=== PATIENT | female | born 2000 | race Caucasian/White ===

== ENCOUNTER 2020-09-20 14:00 | Outpatient (RCR) | payer OTHER, SELFPAY | END 2020-09-30 23:55 | disposition home or self-care (01) | LOC: HO.PAOS 14:00 | PROVIDERS: Visit Provider Counselor Mental Health | DX: F43.10 Post-traumatic stress disorder, unspecified (principal); F33.2 Major depressive disorder, recurrent severe without psychotic features | CPT/HCPCS: 90834 ==

== ENCOUNTER 2020-12-16 10:00 | Outpatient (RCR) | payer OTHER, SELFPAY ==
[2020-11-25 12:19] VITALS: BMI 21.6
--- NOTE | 2020-11-25 12:35 | PC.NURSE ---
Patient is a 20 year old who identifies as non-binary and goes by the name of Loida. They were referred by their therapist d/t increased depression with passive SI, increased anxiety, agoraphobia, and increased sxs of PTSD. Patient reports recent stay at [facility] d/t symptoms and reports stressors including financial and work related. Patient reports one of their jobs is triggering and stated they have not been back since the end of September. Patient given the number to [facility] and has information regarding SNAP benefits. Patient presents with depressed mood and affect. Denied SI at present. Denied HI, AH, Or VH. Asked who they could call or talk to if feeling unsafe and patient mentioned their partner, texting crisis, call family or friends. Patient gave verbal permission to email them a copy of their safety plan. Patient lives with their partner. They do not have a PCP at this time as they were previously seeing a pediatric PCP. Patient would like staff assistance in finding a new PCP. Reports taking medications as prescribed however made adjustments on how they are taking Buspar as they forget to take the noon dose. Patient is taking the same daily dose and stated their prescriber is aware.
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
--- NOTE | 2020-11-30 18:25 | P.PNPSP_ITS ---
Subjective Subjective Date of Service: 11/30/20 Reason For Visit: depression Interim History: Loida reports recent fatigue panel of labs done with OP team that were negative (lyme, TFT, bmp, monique, iGG, cbcd, esr. Reports fatigue persists along with anxiety. Denies med SE. but it feels like the meds don't work . Reports sleep is intact, Trazodone helpful. At times it is difficult to remain asleep and at times they experience JUAN. Appetite is decreased, currently eating 1 meal daily. Pt denies SI/self-harm thoughts, intent or plan, states they find that connection is very helpful-connecting with group in [facility], connecting with partner, not being isolative is most helpful and these inte rventions manage sx when they arise. Denies substance use, medical symptoms or complaints (reports hx anemia-contributing factor to fatigue), no lability, no VH/AH. Medication Compliance: Yes Side effects from medications: No Attending Groups: Yes Review of Systems Constitutional: Reports fatigue Psychiatric: Reports anxiety and Reports depression Endocrine: Reports fatigue Mental Status Exam Mental Status Exam Patient Appearance: Appropriate Patient Orientation: Person, Place, Time and Situation Level of Consciousness: Awake and Alert Patient Behavior: Appropriate and Talkative Mood Description: Calm Affect Description: Calm Patient Cognition Impaired: No Ability to Follow Directions: Good Speech Pattern: Spontaneous Speech Memory Description: Intact Hallucinations: None Delusions: Not Present Thought Process: Intact Thought Content: positive for Intact Depressive Symptoms: Increased Anxiety and Changes in Appetite Judgement: Good Diagnostics Vital Signs (24Hr): Body Mass Index 21.6 Labs Labs: Fatigue panel just completed with OP team which is normal. Assessment & Plan Assessment & Plan (1) Bipolar II disorder with atypical features: Status: Acute Code(s): F31.81 - Bipolar II disorder Assessment and Plan: -Continue current plan of care. Pt has just completed diagnostics with OP team and wants to take the next step with medicine titration with their plan of care. Patient educated on: therapeutic strategies Informed Consent: understands and further education needed Reason for contiued partial hosp. stay Substantial Risk for: harm to self and rapid decompensation Certification I certify that partial hospital treatment is medically necessary due to the symptoms and problems resulting from the patient's mental illness and the failure to treat the patient at the partial hospital level of care would likely result in the patient requiring inpatient psychiatric care which could not be prevented at a less intensive level of care. Greater than 50% of the session was spent on counseling and/or coordination of care Discharge Plan Discharge Attending provider: Preston Garcia Medications: No Action trazodone 100 mg Tablet 200 mg PO BEDTIME RF: 0 lamotrigine 150 mg Tablet 150 mg PO BEDTIME RF: 0 buspirone 30 mg Tablet 30 mg PO BEDTIME RF: 0 buspirone [BuSpar] 30 mg Tablet 15 mg PO DAILY RF: 0 buspirone 7.5 mg Tablet 7.5 mg PO DAILY RF: 0 guanfacine 2 mg Tablet Extended Release 24 Hr 2 mg PO QPM RF: 0 Telehealth Telehealth Location of provider rendering services: practice address Location of patient: address on file Patient Identification confirmed using: Name, : Yes Telehealth method: video Patient verbally consented to treatment: Yes Patient verbally consented to billing insurance company: Yes Patient informed of any privacy concerns related to visit: Yes Time spent with patient (mins): 20
--- NOTE | 2020-12-07 14:08 | HO.PHPPROGNO ---
Subjective Subjective Date of Service: 12/07/20 Reason For Visit: depression Interim History: Loida reports improve in symptoms of depression. She reports feeling a little bit more energy and willingness to do things that she enjoys. She reports no increase of anxiety during the day with addition of Bupropion. She is taking SD 37.5mg po daily. She denies SI/HI. She is future oriented and reports program has been very beneficial. We discussed increasing Bupropion to 75mg po daily. Review of Systems Constitutional: Reports fatigue Psychiatric: Reports anxiety and Reports depression Endocrine: Reports fatigue Mental Status Exam Mental Status Exam Narrative: Appearance: casually groomed, good hygiene, in NAD Behavior: calm, cooperative Psychomotor: no agitation or retardation noted Speech: clear, normal rate/rhythm/volume, spontaneous TP: linear TC: no signs of psychosis, feeling anxious/depressed Mood: better Affect: brighter at times, non labile SI: denies, no plan HI: none VH/AH: none Delusions: none Insight/judgment: fair x 2. Memory/cog: alert, oriented x 3. Grossly intact to conversational testing. Patient Appearance: Appropriate Patient Orientation: Place, Time and Situation Level of Consciousness: Awake and Alert Patient Behavior: Talkative Mood Description: Calm Affect Description: Calm Patient Cognition Impaired: No Ability to Follow Directions: Good Speech Pattern: Spontaneous Speech Memory Description: Intact Diagnostics Vital Signs (24Hr): Body Mass Index 21.6 Assessment & Plan Assessment & Plan (1) Bipolar II disorder with atypical features: Status: Acute Code(s): F31.81 - Bipolar II disorder Assessment and Plan: -Continue current plan of care. Increase Bupropion to 75mg po daily. Continue all other medications as prescribed. Certification I certify that partial hospital treatment is medically necessary due to the symptoms and problems resulting from the patient's mental illness and the failure to treat the patient at the partial hospital level of care would likely result in the patient requiring inpatient psychiatric care which could not be prevented at a less intensive level of care. Greater than 50% of the session was spent on counseling and/or coordination of care Discharge Plan Discharge Attending provider: Preston Garcia Medications: New bupropion HCl 75 mg tablet 75 mg PO DAILY 15 Days Qty: 15 RF: 0 No Action trazodone 100 mg Tablet 200 mg PO BEDTIME RF: 0 lamotrigine 150 mg Tablet 150 mg PO BEDTIME RF: 0 buspirone 30 mg Tablet 30 mg PO BEDTIME RF: 0 buspirone [BuSpar] 30 mg Tablet 15 mg PO DAILY RF: 0 buspirone 7.5 mg Tablet 7.5 mg PO DAILY RF: 0 guanfacine 2 mg Tablet Extended Release 24 Hr 2 mg PO QPM RF: 0 Telehealth Telehealth Location of provider rendering services: practice address Location of patient: address on file Patient Identification confirmed using: Name, : Yes Telehealth method: video Patient verbally consented to treatment: Yes Patient verbally consented to billing insurance company: Yes Patient informed of any privacy concerns related to visit: Yes Time spent with patient (mins): 20
--- NOTE | 2020-12-08 15:16 | PC.NURSE ---
After playing phone tag with Dr. Jen Hnaks, who runs the DBT program at [facility], I called central registration and put in a referral for pt to join the DBT group. This was in response to a message from Dr. Hanks instructing me to do so, and stating she will take pt into her DBT art-based skills group. I was told that [facility] would contact pt. I called and informed pt of this, and the reported they were pleased and looking forward to joining the group.
--- NOTE | 2020-12-15 16:32 | HO.PHPPROGNO ---
Subjective Subjective Date of Service: 12/15/20 Reason For Visit: depression Interim History: Pt reports Wellbutrin to be helpful with more energy to tackle required tasks. Acknowledges situational anxiety with anticipated return to work and recently needing to distance from a few people in her life. Reports sleep is appropriate, 7-8 hours per night, appetite is poor however pt is mindful and eating regularly. Denies SE, Denies SI plan or intent, reports she is safe, doing some skin picking but less symptomatic overall. Medication Compliance: Yes Side effects from medications: No Attending Groups: Yes Review of Systems Review of Systems Yes all other systems are reviewed and are negative (denies current symptoms) Mental Status Exam Mental Status Exam Patient Appearance: Appropriate Patient Orientation: Person, Place, Time and Situation Level of Consciousness: Awake and Alert Patient Behavior: Appropriate Mood Description: Anxious Affect Description: Flat Patient Cognition Impaired: No Ability to Follow Directions: Good Speech Pattern: Spontaneous Speech Memory Description: Intact Hallucinations: None Delusions: Not Present Thought Process: Intact Thought Content: positive for Intact and positive for Suicidal Ideation (denies SI plan or intent) Depressive Symptoms: Increased Anxiety and Changes in Appetite Judgement: Good Diagnostics Vital Signs (24Hr): Body Mass Index 21.6 Assessment & Plan Assessment & Plan (1) Bipolar II disorder with atypical features: Status: Acute Code(s): F31.81 - Bipolar II disorder Assessment and Plan: Continue current plan of care. Certification I certify that partial hospital treatment is medically necessary due to the symptoms and problems resulting from the patient's mental illness and the failure to treat the patient at the partial hospital level of care would likely result in the patient requiring inpatient psychiatric care which could not be prevented at a less intensive level of care. Greater than 50% of the session was spent on counseling and/or coordination of care Discharge Plan Discharge Attending provider: Preston Garcia Medications: Continued bupropion HCl 75 mg tablet 75 mg PO DAILY 15 Days Qty: 15 RF: 1 No Action trazodone 100 mg Tablet 200 mg PO BEDTIME RF: 0 lamotrigine 150 mg Tablet 150 mg PO BEDTIME RF: 0 buspirone 30 mg Tablet 30 mg PO BEDTIME RF: 0 buspirone [BuSpar] 30 mg Tablet 15 mg PO DAILY RF: 0 buspirone 7.5 mg Tablet 7.5 mg PO DAILY RF: 0 guanfacine 2 mg Tablet Extended Release 24 Hr 2 mg PO QPM RF: 0 Telehealth Telehealth Location of provider rendering services: practice address Location of patient: address on file Patient Identification confirmed using: Name, : Yes Telehealth method: video Patient verbally consented to treatment: Yes Patient verbally consented to billing insurance company: Yes Patient informed of any privacy concerns related to visit: Yes Time spent with patient (mins): 15
--- NOTE | 2020-12-16 15:09 | PC.NURSE ---
I called and LM for Meenakshi Hess, pt's therapist at [facility], letting her know that pt is discharged today, and informing her about continued symptoms.
== END 2020-12-16 23:55 | disposition home or self-care (01) ==
LOC: HO.PHPA 10:00
PROVIDERS: Visit Provider Psychiatry & Neurology Psychiatry
DX: F31.81 Bipolar II disorder (principal); F33.2 Major depressive disorder, recurrent severe without psychotic features; F43.10 Post-traumatic stress disorder, unspecified; F12.10 Cannabis abuse, uncomplicated; Z79.899 Other long term (current) drug therapy; Z91.5 Personal history of self-harm
CPT/HCPCS: 90791; 90853

== ENCOUNTER 2023-04-19 09:33 | Emergency (ER) | payer OTHER, SELFPAY ==
--- NOTE | ~2023-04-19 | US_ITS ---
EXAMINATION: US ABDOMEN COMPLETE CLINICAL INFORMATION: Upper abdominal pain. COMPARISON: None available. TECHNIQUE: Real-time imaging of the abdominal viscera. FINDINGS: PANCREAS: Visualized portions unremarkable. ABDOMINAL AORTA: Visualized portions unremarkable. INFERIOR VENA CAVA: Visualized portions unremarkable. LIVER: Unremarkable. GALLBLADDER: A small follow-up along the deep wall measures 0.3 cm. No mural thickening or pericholecystic fluid. Color Doppler showed no abnormal vascular flow. COMMON BILE DUCT: Normal in caliber measuring 0.4 cm in diameter. RIGHT KIDNEY: 9.0 cm. Unremarkable. LEFT KIDNEY: 9.7 cm. Unremarkable. SPLEEN: 10.6 cm. Unremarkable. FREE FLUID: None. US/US abdomen complete IMPRESSION: Small gallbladder polyp measuring 0.3 cm without other significant abnormality. This can be monitored for change with a repeat right upper quadrant ultrasound in one year.
[2023-04-19 09:55] VITALS: BP 125/74; PULSE 78; RESP 16; TEMP 36.4; O2SAT 98; BMI 26.4
[2023-04-19 10:12] LABS: MANUAL DIFF FLAG NO
[2023-04-19 10:16] LABS: Basophils Absolute Auto 0.1 X10*3/uL (0.0-0.2); Basophils Percent Auto 0.8 % (0-2); Eosinophils Absolute Auto 0.1 X10*3/uL (0.0-0.4); Eosinophils Percent Auto 1.5 % (0-4); Hematocrit 41.1 % (37.0-47.0); Hemoglobin 12.9 g/dl (12.0-16.0); Imm Gran Abs Auto 0.01 X10*3/uL (0.00-0.03); Imm Gran Pct Auto 0.2 % (0.0-0.4); Lymphocytes Absolute Auto 1.5 X10*3/uL (1.2-4.9); Lymphocytes Percent Auto 23.1 % (20-40); Mean Corpuscular HGB Conc 31.4 g/dl (31.0-35.0); Mean Corpuscular Hemoglobin 26.5 pg (27.0-33.0); Mean Corpuscular Volume 84.6 fL (80.0-98.0); Monocytes Absolute Auto 0.4 X10*3/uL (0.1-1.2); Monocytes Percent Auto 5.8 % (2-11); Neutrophils Absolute Auto 4.5 x10*3/uL (2.0-8.3); Neutrophils Percent Auto 68.6 % (45-73); Platelet Count 314 X10*3/uL (160-400); Red Blood Count 4.86 X10*6/uL (4.20-5.50); Red Cell Distribution Width 13.6 % (11.0-16.0); White Blood Count 6.5 X10*3/uL (4.8-10.8)
[2023-04-19 10:32] LABS: Alanine Aminotransferase 13 U/L (0-31); Albumin Level 4.2 g/dL (3.5-5.0); Alkaline Phosphatase 75 U/L (39-117); Anion Gap 9 (12-20); Aspartate Amino Transferase 12 U/L (5-31); Bilirubin Total 0.2 mg/dL (0.0-1.0); Blood Urea Nitrogen 11 mg/dL (9-16); Calcium 9.6 mg/dL (8.4-10.2); Carbon Dioxide 25 mmol/L (22-29); Chloride 108 mmol/L (96-108); Creatinine Clr Calc Pharmacy 119.6; Estimated Glomerular Filt Rate > 60; Glucose Random 101 mg/dL (60-115); Lipase 133 U/L (8-78); Potassium 4.5 mmol/L (3.3-5.1); Sodium 137 mmol/L (135-145); Total Protein 6.9 g/dL (6.5-8.0)
[2023-04-19 10:49] VITALS: BP 121/65; PULSE 58; RESP 14; TEMP 36.7; O2SAT 98
--- NOTE | 2023-04-19 11:04 | ED_ITS ---
HPI - Abdominal Pain General Chief Complaint: Abdominal Pain Stated Complaint: abd pain Time Seen by Provider: 04/19/23 10:48 Source: patient, RN notes reviewed and old records reviewed Mode of arrival: ambulatory History of Present Illness HPI narrative: 22-year-old female with a past medical history of IBS, bipolar, presenting to the ED complaining of mid epigastric abdominal pain since early this morning with associated nausea and loose nonbloody diarrhea. Reports chronic abdominal pain, however today worse than normal. Denies vomiting, dysuria/hematuria, fever/chills, suspicious food intake, recent travel MD elicited complaint: abdominal pain Related Data Home Medications Medication Instructions Recorded Confirmed buspirone 30 mg tablet 15 mg PO DAILY 11/25/20 11/25/20 buspirone 30 mg tablet 30 mg PO BEDTIME 11/25/20 11/25/20 buspirone 7.5 mg tablet 7.5 mg PO DAILY 11/25/20 11/25/20 guanfacine 2 mg tablet,extended 2 mg PO QPM 11/25/20 11/25/20 release 24 hr lamotrigine 150 mg tablet 150 mg PO BEDTIME 11/25/20 11/25/20 trazodone 100 mg tablet 200 mg PO BEDTIME 11/25/20 11/25/20 Previous Rx's Medication Instructions Recorded bupropion HCl 75 mg tablet 75 mg PO DAILY 15 days #15 tabs 12/15/20 ondansetron 4 mg disintegrating 4 mg PO Q8H PRN nausea and 04/19/23 tablet vomiting #10 tabs Allergies Allergy/AdvReac Type Severity Reaction Status Date / Time lactose [LACTOSE] Allergy Unknown GI UPSET Verified 04/19/23 09:55 Review of Systems Review of Systems Constitutional: No Fever, No Chills ENT/Mouth: No Ear Pain, No Nasal Congestion, No sore throat, No Rhinorrhea, No Swallowing Difficulty Cardiovascular: No Chest Pain, No SOB Respiratory: No Cough, No Sputum, No Wheezing Gastrointestinal: + Nausea, No Vomiting, + Diarrhea, No Constipation, + Abdominal pain Genitourinary: No Dysuria, No Urinary Frequency, No Urgency, No Flank Pain Musculoskeletal: No joint pain, No Myalgias, No Joint Swelling Skin: No Skin Lesions, No rash Neuro: No Weakness, No Numbness, No Paresthesias Yes all other systems are reviewed and are negative Constitutional: Reports as per [facility] Past Medical History Attestation statement: The following information was validated with the patient. Source: old records reviewed Social History Social History Household Members: Significant Other Smoked in Last 30 Days: No Use of substances other than those prescribed or required for medical reasons: No Advance Directives: No Patient : No Physical Exam ED Vital Signs: Vital Signs - 24 hr 04/19/23 09:55 04/19/23 10:49 Temperature 97.5 F 98.1 F Pulse Rate 78 58 Respiratory Rate 16 14 Blood Pressure 125/74 121/65 Pulse Oximetry 98 98 Oxygen Delivery Method Room Air Room Air BMI result Body Mass Index 26.4 Const General: cooperative, healthy appearing and no acute distress Orientation/consciousness: patient oriented x3 Limitations: no limitations HENMT Head: Yes normal to inspection and Yes atraumatic Ears: hearing grossly normal bilaterally General nose exam: Normal external nose present Face and sinus: Yes normal facial exam Eyes General: appearance normal, both eyes and all related structures EOM: EOMs intact bilaterally Neck Neck: Yes normal visual inspection and Yes no meningeal signs Resp Effort & Inspection: normal respiratory effort and no respiratory distress Cardio Rate: regular rate Heart sounds: S1 normal heart sound present and S2 normal heart sound present GI Inspection: Yes normal to inspection Palpation (GI): Soft to palpation, Tenderness to palpation present (GI) in the epigastrum, in the LUQ and in the RUQ; with no rebound tenderness, no guarding and not rigid General: Yes no CVA tenderness Back/Spine/Pelvis Back: no CVA tenderness Skin Rashes: no rashes Wounds: no wounds Neuro General: patient oriented x3, tone normal and no meningeal signs Gait exam (Neuro): Normal gait present Extrem General: Yes normal to inspection Course Course Course Narrative: 1300--no leukocytosis. Lipase mildly elevated to 133 -UA negative, negative US abdomen complete IMPRESSION: Small gallbladder polyp measuring 0.3 cm without other significant abnormality. This can be monitored for change with a repeat right upper quadrant ultrasound in one year. >1311--results discussed with patient. Reports tolerated p.o. donut in the ED without difficulty, reports symptomatic improvement, feels safe for discharge at this time Results discussed with patient including worrisome signs and symptoms and strict return precautions, and when to return to the emergency department. They verbalized understanding and feel safe for discharge at this time. Medical Decision Making Medical Decision Making [facility] Narrative: 22-year-old female with a past medical history of IBS, bipolar, presenting to the ED complaining of mid epigastric abdominal pain since early this morning with associated nausea and loose nonbloody diarrhea. On exam vital signs stable, NAD, nontoxic appearing, abdomen soft with RUQ/epigastric and LUQ tenderness, no rebound or guarding, new CVAT. Concern for gastroenteritis vs GERD/gastritis vs IBS flare vs pancreatitis or cholecystitis/lithiasis. Lower suspicion for acute colitis/diverticulitis or appendicitis. Plan: Labs, UA, abdomen ultrasound, GI cocktail Please refer to course for remaining clinical decision making, interpretation of labs/imaging results, and discussions with consultants and/or family members. Differential Diagnosis Differential Diagnoses: The differential diagnosis associated with the presentation includes As above Lab Data [facility] Lab Attestation statement: I reviewed the patient's lab results. 04/19/23 10:08 04/19/23 10:08 Labs: Lab Results 04/19/23 04/19/23 04/19/23 Range/Units 10:08 10:08 11:17 WBC 6.5 (4.8-10.8) X10*3/uL RBC 4.86 (4.20-5.50) X10*6/uL Hgb 12.9 (12.0-16.0) g/dl Hct 41.1 (37.0-47.0) % MCV 84.6 (80.0-98.0) fL MCH 26.5 L (27.0-33.0) pg MCHC 31.4 (31.0-35.0) g/dl RDW 13.6 (11.0-16.0) % Plt Count 314 (160-400) X10*3/uL MPV 10.0 (9.4-12.3) fL Immature Gran % (Auto) 0.2 (0.0-0.4) % Neut % (Auto) 68.6 (45-73) % Lymph % (Auto) 23.1 (20-40) % [place] % (Auto) 5.8 (2-11) % Eos % (Auto) 1.5 (0-4) % Baso % (Auto) 0.8 (0-2) % Lymph # (Auto) 1.5 (1.2-4.9) X10*3/uL [place] # (Auto) 0.4 (0.1-1.2) X10*3/uL Eos # (Auto) 0.1 (0.0-0.4) X10*3/uL Baso # (Auto) 0.1 (0.0-0.2) X10*3/uL Abs Immat Gran (auto) 0.01 (0.00-0.03) X10*3/uL Absolute Neuts (auto) 4.5 (2.0-8.3) x10*3/uL Absolute Nucleated RBC 0.000 (0.0-0.012) X10*3/uL Nucleated RBC % (auto) 0.0 (0.0-0.2) /100WBC Sodium 137 (135-145) mmol/L Potassium 4.5 (3.3-5.1) mmol/L Chloride 108 (96-108) mmol/L Carbon Dioxide 25 (22-29) mmol/L Anion Gap 9 L (12-20) BUN 11 (9-16) mg/dL Creatinine 0.70 (0.5-1.4) mg/dL Estim Creat Clear Calc 119.6 Estimated GFR > 60 Random Glucose 101 (60-115) mg/dL Calcium 9.6 (8.4-10.2) mg/dL Magnesium 2.1 (1.6-2.6) mg/dL Total Bilirubin 0.2 (0.0-1.0) mg/dL AST 12 (5-31) U/L ALT 13 (0-31) U/L Alkaline Phosphatase 75 (39-117) U/L Total Protein 6.9 (6.5-8.0) g/dL Albumin 4.2 (3.5-5.0) g/dL Lipase 133 H (8-78) U/L Urine Color Yellow Urine Appearance Clear Urine pH 6.5 (5.0-9.0) Ur Specific [place] 1.010 (1.005-1.025) Urine Protein Negative (Neg-Trace) mg/dL Urine Glucose (UA) Negative (Negative) mg/dL Urine Ketones Negative (Negative) mg/dL Urine Blood Negative (Negative) Urine Nitrite Negative (Negative) Ur Leukocyte Esterase Negative (Negative) Urine Test (NEGATIVE) 04/19/23 Range/Units 11:17 WBC (4.8-10.8) X10*3/uL RBC (4.20-5.50) X10*6/uL Hgb (12.0-16.0) g/dl Hct (37.0-47.0) % MCV (80.0-98.0) fL MCH (27.0-33.0) pg MCHC (31.0-35.0) g/dl RDW (11.0-16.0) % Plt Count (160-400) X10*3/uL MPV (9.4-12.3) fL Immature Gran % (Auto) (0.0-0.4) % Neut % (Auto) (45-73) % Lymph % (Auto) (20-40) % [place] % (Auto) (2-11) % Eos % (Auto) (0-4) % Baso % (Auto) (0-2) % Lymph # (Auto) (1.2-4.9) X10*3/uL [place] # (Auto) (0.1-1.2) X10*3/uL Eos # (Auto) (0.0-0.4) X10*3/uL Baso # (Auto) (0.0-0.2) X10*3/uL Abs Immat Gran (auto) (0.00-0.03) X10*3/uL Absolute Neuts (auto) (2.0-8.3) x10*3/uL Absolute Nucleated RBC (0.0-0.012) X10*3/uL Nucleated RBC % (auto) (0.0-0.2) /100WBC Sodium (135-145) mmol/L Potassium (3.3-5.1) mmol/L Chloride (96-108) mmol/L Carbon Dioxide (22-29) mmol/L Anion Gap (12-20) BUN (9-16) mg/dL Creatinine (0.5-1.4) mg/dL Estim Creat Clear Calc Estimated GFR Random Glucose (60-115) mg/dL Calcium (8.4-10.2) mg/dL Magnesium (1.6-2.6) mg/dL Total Bilirubin (0.0-1.0) mg/dL AST (5-31) U/L ALT (0-31) U/L Alkaline Phosphatase (39-117) U/L Total Protein (6.5-8.0) g/dL Albumin (3.5-5.0) g/dL Lipase (8-78) U/L Urine Color Urine Appearance Urine pH (5.0-9.0) Ur Specific [place] (1.005-1.025) Urine Protein (Neg-Trace) mg/dL Urine Glucose (UA) (Negative) mg/dL Urine Ketones (Negative) mg/dL Urine Blood (Negative) Urine Nitrite (Negative) Ur Leukocyte Esterase (Negative) Urine Test NEGATIVE (NEGATIVE) Radiology Impression Discussion of test interpretation with radiology: I have reviewed the radiologist's reading. External Record Review External record reviewed: Inpatient record, Office record, Outpatient record, Prior outpatient labs, Prior outpatient radiology, Primary care record and Outside ED record Tests considered The following testing was considered but not selected: CT considered Prescription Management I considered prescription management with: Pain Medication Chronic Conditions Patient?s care impacted by: Other (IBS) Medications Administered Discontinued Medications Generic Name Dose Route Start Last Admin Trade Name Freq PRN Reason Stop Dose Admin Al Hydroxide/Mg Hydroxide 30 ml 04/19/23 11:01 04/19/23 11:47 Magnesium Hydrox/Alum Hydrox 30 Ml Oral.Susp PO 04/19/23 11:02 30 ml ONCE ONE Administration Famotidine 20 mg 04/19/23 11:01 04/19/23 11:47 Famotidine 20 Mg Tablet PO 04/19/23 11:02 20 mg ONCE ONE Administration Ondansetron HCl 4 mg 04/19/23 11:01 04/19/23 11:15 Ondansetron Odt 4 Mg Tab.Rapdis TRANSLINGU 04/19/23 11:02 4 mg ONCE ONE Administration Discharge Plan Discharge Clinical Impression: Abdominal pain, Nausea, Diarrhea Patient Disposition: Home, Self-Care Instructions: Abdominal Pain (ED) Additional Instructions: Your blood work did show mild elevation in your pancreas enzyme Your ultrasound was reassuring, does show a small gallbladder polyp, it is recom mended to have a repeat right upper quadrant ultrasound in 1 year for monitoring Zofran as an antinausea medication, take as needed Practice of bland diet, fever persistent or worsening nausea/vomiting, abdominal pain or fever return to the emergency department Follow-up with your doctor Prescriptions: New ondansetron 4 mg tablet,disintegrating 4 mg PO Q8H PRN (Reason: nausea and vomiting) Qty: 10 0RF No Action trazodone 100 mg Tablet 200 mg PO BEDTIME Patient Comments: Patient takes 100 mg at HS. lamotrigine 150 mg Tablet 150 mg PO BEDTIME buspirone 30 mg Tablet 30 mg PO BEDTIME Patient Comments: Patient takes 30 mg at bedtime buspirone [BuSpar] 30 mg Tablet 15 mg PO DAILY Patient Comments: Prescribed 15 mg TID with 7.5 mg in am Patient takes 15 mg with 7.5 mg in the am and 30 mg at bedtime. No noontime dose. Rx Instructions: Take with 7.5 mg tab total morning dose 22.5 mg buspirone 7.5 mg Tablet 7.5 mg PO DAILY Rx Instructions: Take with 15 mg dose in the am guanfacine 2 mg Tablet Extended Release 24 Hr 2 mg PO QPM bupropion HCl 75 mg tablet 75 mg PO DAILY 15 Days Qty: 15 1RF Rx Instructions: administer 6 hours apart Referrals: [facility] [Provider Group] Irina Obando MD [Primary Care Provider] - Interventions: ED Discharge Assessment Last Done: 04/19/23 13:25 Discharge Date/Time: 04/19/23 13:25
[2023-04-19] MEDS: Ondansetron ODT 4 MG TAB.RAPDIS TRANSLINGU (11:15)
[2023-04-19 11:24] LABS: Appearance Urine Clear; Color Urine Yellow; Glucose Urine UA Negative (Negative); Leukocyte Esterase Urine Negative (Negative); Nitrite Urine Negative (Negative); PH 6.5 (5.0-9.0); Urine Blood Negative (Negative); Urine Ketones Negative (Negative); Urine Protein Negative (Neg-Trace)
[2023-04-19 11:26] LABS: Urine Pregnancy NEGATIVE (NEGATIVE)
[2023-04-19 11:27] LABS: UPreg QC Valid YES
[2023-04-19 11:38] LABS: Magnesium 2.1 mg/dL (1.6-2.6)
[2023-04-19] MEDS: Famotidine 20 MG TABLET PO (11:47)
[2023-04-19] MEDS: Magnesium Hydrox/Alum Hydrox 30 ML ORAL.SUSP PO (11:47)
== END 2023-04-19 13:25 | disposition home or self-care (01) ==
PROVIDERS: Physician Assistant; Emergency Provider Emergency Medicine; PCP Family Medicine
DX: R10.13 Epigastric pain (principal); Z79.899 Other long term (current) drug therapy
CPT/HCPCS: 36415; 76700; 80053; 81003; 81025; 83690; 83735; 85025; 99284